=== PATIENT | female | born 1995 | race Caucasian/White ===

== ENCOUNTER → 2018-09-13 20:30 | Observation (INO) ==
[2018-09-13 19:13] LABS: Bacteria,Urine None Seen per hpf (None-Few); Bilirubin,Urine Negative (Negative); Blood,Urine Negative (Negative); Clarity,Urine Clear (Clear); Color,Urine Yellow (Yellow); Glucose,Urine (UA) 100 mg/dL (Normal); Hyaline Casts,Urine None Seen per lpf (None-Few); Ketones,Urine Trace mg/dL (Negative); Leukocyte Esterase,Urine Negative (Negative); Nitrite,Urine Negative (Negative); PH,Urine 6.5 pH Units (5.0-8.0); Protein,Urine 30 mg/dL (Neg-Trace); RBC,Urine 0-3 per hpf (0-3); Specific Gravity,Urine 1.025 (1.010-1.025); Squamous Epithelial Cell,Urine Many per lpf (None-Few); Urobilinogen,Urine Normal (Normal); WBC,Urine 0-3 per hpf (0-3)
[2018-09-13 19:25] LABS: Mucus,Urine Few (Few)
[2018-09-13 19:27] LABS: Amphetamine Screen,Urine Negative ng/mL (Cutoff=1000); Barbiturate Screen,Urine Negative ng/mL (Cutoff=200); Benzodiazepines Screen,Urine Negative ng/mL (Cutoff=200); Cannabinoid Screen,Urine Negative ng/mL (Cutoff = 50); Cocaine Screen,Urine Negative ng/mL (Cutoff= 300); Opiate Screen,Urine Negative ng/mL (Cutoff=300); Phencyclidine Screen,Urine Negative ng/mL (Cutoff=25)
--- NOTE | 2018-09-13 20:01 | Discharge Summary ---
Date of Encounter: 09/13/18 Time of Encounter: 19:57 - Discharge Diagnosis (1) 30 weeks gestation of Priority: Primary Status: Acute Comments: Follow up with Dr. Cortés as scheduled on Thursday labor precautions discussed Discharge home (2) Dixon Donaldson' contraction Priority: Secondary Status: Acute Comments: We discussed that these are not laborous contractions Verbalizes understanding - Discharge Medications Home Medications: Citalopram Hydrobromide [Citalopram HBr] 10 mg PO DAILY 04/26/18 [History] Vit #108/Iron/FA [ One Tablet] 1 tab PO DAILY 04/26/18 [History] Doxylamine/Pyridoxine HCl [Diclegis Dr 10-10 mg Tablet] 2 tab PO HS #60 tablet.d r 04/27/18 [Rx] Promethazine [Phenergan] 12.5 mg PO BID #60 tablet 04/27/18 [Rx] Allergies/Adverse Reactions: Allergy/AdvReac Type Severity Reaction Status Date / Time No Known Allergies Allergy Verified 04/26/18 09:23 Data Procedures and tests throughout hospitalization: Laboratory Tests 09/13/18 09/13/18 19:00 19:00 Urine Color Yellow Urine Clarity Clear Urine pH 6.5 Ur Specific [place]ber 1.025 Urine Protein 30 H Urine Glucose (UA) 100 H Urine Ketones Trace H Urine Blood Negative Urine Nitrite Negative Urine Bilirubin Negative Urine Urobilinogen Normal Ur Leukocyte Esterase Negative Urine Microscopic RBC 0-3 Urine Microscopic WBC 0-3 Ur Squamous Epith Cells Many H Urine Bacteria None Seen Hyaline Casts None Seen Urine Mucus Few Urine Yeast Test Not Performed Ur Culture Indicated? NO Urine Opiates Screen Negative Ur Barbiturates Screen Negative Ur Phencyclidine Scrn Negative Ur Amphetamines Screen Negative U Benzodiazepines Scrn Negative Urine Cocaine Screen Negative U Marijuana (THC) Screen Negative Ur Drug Screen Interp See Below Labs on day of discharge: Labs from last 24 hours 09/13/18 09/13/18 19:00 19:00 Urine Color Yellow Urine Clarity Clear Urine pH 6.5 Ur Specific [place] 1.025 Urine Protein 30 H Urine Glucose (UA) 100 H Urine Ketones Trace H Urine Blood Negative Urine Nitrite Negative Urine Bilirubin Negative Urine Urobilinogen Normal Ur Leukocyte Esterase Negative Urine Microscopic RBC 0-3 Urine Microscopic WBC 0-3 Ur Squamous Epith Cells Many H Urine Bacteria None Seen Hyaline Casts None Seen Urine Mucus Few Urine Yeast Test Not Performed Ur Culture Indicated? NO Urine Opiates Screen Negative Ur Barbiturates Screen Negative Ur Phencyclidine Scrn Negative Ur Amphetamines Screen Negative U Benzodiazepines Scrn Negative Urine Cocaine Screen Negative U Marijuana (THC) Screen Negative Ur Drug Screen Interp See Below Date of admission: 09/13/18 18:24 Discharging clinician: Jeniffer Vazquez Anticipated date of discharge: 09/13/18 - Patient Status Disposition: Home, Self-Care Condition: Good Functional capacity at discharge: independent ambulation Overall status at discharge: patient is progressing back to baseline - Discharge Instructions Follow Up With: Shakir Cortés MD [Partnered Physician] - - Diet and Activity Activity: increase activity as tolerated Diet: regular diet Hospital Course [employer] Reason for admission: other Discharge diagnosis: other Hospital course: Patient presents for c/o contractions since having intercourse on Thursday. She reports they are irregular and sometimes painful. She was monitored for 2 hours in L&D with no cervical change. She endorses good fm and denies lof, vb. Discharge home with follow up on Thursday Time Attestation: Total time spent providing and/or coordinating discharge services: Time Spent: Less than 30 minutes Exam - Constitutional General appearance IM: A&O X 3 - Respiratory Respiratory exam: Present: CTAB - Cardiovascular Cardiovascular exam IM: Present: RRR, +S1, +S2 - GI/Abdominal GI/Abdominal exam IM: normal bowel sounds, no peritoneal signs - Rectal Rectal exam: deferred - Uterine Tone: Firm - Extremities Exam Extremities exam IM: Present: normal capillary refill, normal inspection, radial pulses palpable and symmetrical - Neurological Exam Neurological exam: alert, CN II-XII intact, normal gait, oriented X3, reflexes normal, no focal deficits, strengths equal and symetr throughout - VTE Reasons for not Prescribing Prophylaxis: Treatment not Indicated - Low risk for VTE
[~2018-09-13 20:30] MED LIST: Ringers Solution, Lactated 1,000 ML IVC ONE
== END | disposition home or self-care (01) ==
LOC: 1NENULAB
PROVIDERS: ADMIT Advanced Practice Midwife; ATTEND Advanced Practice Midwife

== ENCOUNTER 2018-11-04 12:20 | Inpatient (IN) ==
[2018-11-04 14:13] LABS: Amphetamine Screen,Urine Negative ng/mL (Cutoff=1000); Barbiturate Screen,Urine Negative ng/mL (Cutoff=200); Benzodiazepines Screen,Urine Negative ng/mL (Cutoff=200); Cannabinoid Screen,Urine Negative ng/mL (Cutoff = 50); Cocaine Screen,Urine Negative ng/mL (Cutoff= 300); Opiate Screen,Urine Negative ng/mL (Cutoff=300); Phencyclidine Screen,Urine Negative ng/mL (Cutoff=25)
[2018-11-04] MEDS ORDERED: *HR* Nalbuphine 10 MG/ML AMPUL IVP PRN (14:28)
[2018-11-04] MEDS ORDERED: Ondansetron 4 MG/2 ML VIAL IVP PRN (14:28)
[2018-11-04] MEDS ORDERED: Naloxone 0.4 MG/ML INJ IVP PRN (14:28)
[2018-11-04] MEDS ORDERED: Lidocaine 1% 20 ML MDV INFILT PRN (14:28)
[2018-11-04] MEDS ORDERED: Famotidine 20 MG/2 ML VIAL IVP PRN (14:28)
[2018-11-04] MEDS ORDERED: Metoclopramide 10 MG/2 ML VIAL IVP PRN (14:28)
[2018-11-04] MEDS ORDERED: Ringers Solution, Lactated 1,000 ML IVC SCH (14:30)
[2018-11-04] MEDS ORDERED: Oxytocin 20 units/ LR 1000 mL 20 UNIT/1,000 ML BAG IVC SCH (14:30)
--- NOTE | 2018-11-04 14:38 | OB/GYN History & Physical ---
Date of Encounter: 11/04/18 Time of Encounter: 14:34 Assessment and Plan (1) Intrauterine Current visit: Yes Status: Acute Induction of labor Labs- CBC, Hold to collect CF Pain management plan of Epidural Expected (2) 38 weeks gestation of Current visit: Yes Status: Acute (3) Gestational diabetes Current visit: No Status: Acute Glucose monitoring Qualifiers: Gestational diabetes mellitus control: oral hypoglycemic-controlled Trimester: third trimester Qualified Code(s): O24.415 - Gestational diabetes mellitus in , controlled by oral hypoglycemic drugs History of Present Illness Chief complaint: Induction of labor, Gestational Diabetes HPI: Ms. Jordan is a 22 year old female at 38 weeks 6 days with history of gestat ional diabetes, arrives to the L&D suite for induction of labor. Patient on 500 mg Metformin BID and is poorly compliant with medications. Intermittent sensation of crampy abdominal pain, consistent with previous contractions. Patient denies martinez of fluids or vaginal bleeding. Denies any other complaints at this time. NPO. GBS negative. Past Med Surg Social Fam HX - Past Medical History Attestation: Yes The following information was validated with the patient. Source: patient, old records reviewed Medical history: no medical history Psychiatric history: depression - Past Surgical History Surgical History: no surgical history Additional surgical history: TONISILS - Social History Smoking Status: Never smoker Smokeless Tobacco Status: No Alcohol use: none Drug use: none - Family History Father Adopted: No Family Member Ethnicity: Non- Living Status: Still Living Hx Family Cardiac Disorders: No Hx Family Respiratory Disorders: No Hx Family Cancer: No Hx Family GI Disorders: No Hx Family Endocrine Disorder: Yes (diabetic type II) Hx Family Neuromuscular Disorders: No Hx Family Neurologic Disorders: No Hx Family HEENT Disorders: No Hx Family Autoimmune Disorders: No Mother Adopted: [place]: Sintia Bates Family Member Ethnicity: Non- Living Status: Still Living Hx Family Cardiac Disorders: Yes (hypertension) Hx Family Respiratory Disorders: No Hx Family Cancer: No Hx Family GI Disorders: No Hx Family Genitourinary Disorders: No Hx Family Endocrine Disorder: No Hx Family Musculoskeletal Disorders: No Hx Family Neuromuscular Disorders: No Hx Family Neurologic Disorders: No Hx Family HEENT Disorders: No Hx Family Autoimmune Disorders: No Hx Family Reproductive Disorders: No Hx Family Psychosocial Disorders: No Hx Family Medical Disorders: No Obstetrical History - Pregnancies : 2 Para: 1 Term: 1 : 0 Ab's: 0 Livin - History/Complications History/Complications: Gestational Diabetes Medications and Allergies Citalopram Hydrobromide [Citalopram HBr] 10 mg PO DAILY 04/26/18 [History] Vit #108/Iron/FA [ One Tablet] 1 tab PO DAILY 04/26/18 [His tory] metFORMIN 1 tab PO Q12HR 11/01/18 [History] Allergy/AdvReac Type Severity Reaction Status Date / Time No Known Allergies Allergy Verified 04/26/18 09:23 Review of System OB All systems PM: reviewed and no additional remarkable complaints except as stated - Constitutional Constitutional ROS IM: no fever(s), no headache(s) - Cardiovascular Cardiovascular: no chest pain, no pedal edema - Respiratory Respiratory: no dyspnea - Neurological Nerological: no headache(s), no other visual disturbances Exam - Constitutional Constitutional: well developed, well nourished, no acute distress, average body habitus - HEENT HEENT: Mucus Membranes Moist - Neck Neck exam: full ROM - Lungs Respiratory exam: CTAB - Cardiovascular Cardiovascular exam: RRR - Abdomen Abdomen: Present: gravid, non tender. Absent: diffuse tenderness - Extremities Extremities exam: full ROM, normal capillary refill, normal inspection, radial pulses palpable and symmetrical - Uterus Uterus exam: Present: enlarged (appropriate for gestaional age) Results Result Diagrams: 11/04/18 16:41 All other labs normal. - VTE Reasons for not Prescribing Prophylaxis: Treatment not Indicated - Low risk for VTE Attestation: My signature below is to certify that this patient is under my care and that I, or nurse practitioner, or a physician's circulation assistant working with me, has a [id number] encounter with this patient. smith penaloza md facog
[2018-11-04 17:04] LABS: Basophils # 0.1 K/mcL (0.0-0.2); Basophils % 0.5 %; Eosinophils # 0.1 K/mcL (0.0-0.6); Eosinophils % 1.2 %; Hematocrit 32.6 % (35.3-44.9); Hemoglobin 10.6 g/dL (11.5-15.4); Immature Granulocytes % 0.7 % (0-4); Lymphocytes # 2.4 K/mcL (0.6-4.6); Lymphocytes % 23.2 %; Mean Corpuscular HGB Conc 32.5 g/dL (31.6-35.5); Mean Corpuscular Hemoglobin 28.6 pg (28.0-33.3); Mean Corpuscular Volume 87.9 fL (83.0-100.0); Mean Platelet Volume 11.7 fL (9.4-12.4); Monocytes # 0.9 K/mcL (0.0-1.3); Monocytes % 8.6 %; Neutrophils # 6.8 K/mcL (1.6-8.9); Platelet Count 225 K/mcL (140-400); Red Blood Count 3.71 M/mcL (3.82-4.97); Segmented Neutrophils % 65.8 %
[2018-11-04] MEDS ORDERED: *HR* FentaNYL (PF) 100 MCG/2 ML VIAL ONE (22:18)
[2018-11-04] MEDS ORDERED: Lidocaine -MPF 1% 5 ML AMPUL ONE (22:18)
[2018-11-04] MEDS ORDERED: *HR* Ropivacaine/PF 0.2% 20 ML VIAL ONE (22:18)
[2018-11-04] MEDS ORDERED: Epidural Premix (fent/bupiv) 110 ML EP ONE (22:20)
--- NOTE | 2018-11-04 22:43 | Anesthesia Evaluation PreOp ---
Date of Encounter: 11/04/18 Time of Encounter: 22:41 - Past History Planned Operation: leigh Cardiac History: Denies any Significant Hx Pulmonary History: Denies Any Significant HX PLATING OPERATOR History: Denies Any Significant HX Other Medical History: Diabetes Type II (gestational) Anesthesia History: No Prior Anesthetic Complications, Past Anesthesia (tonsils) : Yes () Alcohol Use: none Drug use: none Medications and Allergies Citalopram Hydrobromide [Citalopram HBr] 10 mg PO DAILY 04/26/18 [History] Vit #108/Iron/FA [ One Tablet] 1 tab PO DAILY 04/26/18 [History] metFORMIN 1 tab PO Q12HR 11/01/18 [History] Allergy/AdvReac Type Severity Reaction Status Date / Time No Known Allergies Allergy Verified 04/26/18 09:23 - Meds/Allergy Pre-op Review Medications Reviewed: Yes Allergies Reviewed: Yes Beta Blockers on Current Med List: No Anesthesia Results - Labs 11/04/18 16:41 Anesthesia Exam O2 Sat Height 1.63 m Weight 92.193 kg Vital Signs Temp Pulse Resp BP 97.9 F 86 18 124/61 11/04/18 18:10 11/04/18 18:10 11/04/18 18:10 11/04/18 18:10 Height: 64 Weight: 92 - HEENT Pupil (Motor): Pupils equal Mallampati: II Teeth: Normal Oral Opening: Greater than 3 - PLATING OPERATOR LOC: Oriented PLATING OPERATOR Motor: Normal RUE, Normal LUE, Normal RLE, Normal LLE, Normal Face PLATING OPERATOR Sensory: Normal: RUE, LUE, RLE, LLE, Face - Cardiac Rhythm: Regular Murmur: None JVD: No Carotid Bruit: No - Pulmonary Breath Sounds: bilateral Clear Respiratory Effort: Symmetrical Anesthesia Assess/Plan ASA Score: 2 Level of consciousness: Cooperative Anesthetic Plan: Epidural Monitoring Plan: Standard Monitors
--- NOTE | 2018-11-04 22:47 | Anesthesia Procedures ---
Addendum entered and electronically signed by Renzo Valencia CRNA 11/05/18 07:11: Delivery Date: 11/05/18 Infant Delivery Time: 04:34 Addendum entered and electronically signed by Renzo Valencia CRNA 11/04/18 22:50: procedure end time 2250 Original Note: Date of Encounter: 11/04/18 Time of Encounter: 22:45 Procedures: Anesthesia - Epidural/Spinal Patient ID/Chart reviewed: Yes Patient examined: Yes OB Eval: : 2 OB Eval: Hx Para: 1 OB Eval: Contractions: Non-stressed pattern Consent Obtained: Yes Supplemental Oxygen: None/Room Air Site Prep: Aseptic Technique Patient position: upright Local Anesthetic: Lidocaine 1% Amount of Local Anesthetic used: 3 Touhy Needle Gauge: 18 Touhy Needle Depth (cm): 6 Catheter Depth at Skin (cm): 12 Test Dose (1.5% Lido + Epi): Volume given (mls): 3 Test Dose Result: Negative Loading Dose: Fentanyl (mcg): 100 Loading Dose: Other: 3ml nss, 3ml 0.2% ropivicaine Loading Dose Administered: Thru Touhy Needle Infusion Med: 0.125% Bupivacaine w/ 2 mcg/ml Fentanyl Infusion Rate (mls/hr): [address]: Tegaderm Interspace Used: L3-L4 Loss of Resistance (LOPEZ): Yes Blood: No CSF: No Paresthesia: No
[2018-11-04] MEDS ORDERED: Epidural Premix (fent/bupiv) 110 ML EP SCH (23:00)
--- NOTE | 2018-11-05 02:42 | OB Labor Progress Note ---
Date of Encounter: 11/05/18 Time of Encounter: 02:40 Labor Progress Note - Subjective Subjective: Patient comfortable with epidural - Cervix Cervix: 6-7/70/-2 - Heart Tones Heart Tones: Baseline 140 Moderate variability Accelerations present 15x15 No decelerations FHR Category II - [place]: Contractions every 2-3 minutes - Interventions Interventions: SVE AROM - moderate amount of clear fluid IUPC placed - Plan Physician notified: No Plan: Continue IOL management Frequent position changes Anticipate
[2018-11-05] MEDS ORDERED: Measles/Mumps/Rubella Vacc 0.5 ML VIAL SQ PRN (04:52)
[2018-11-05] MEDS ORDERED: Acetaminophen 325 MG TABLET PO PRN (04:52)
--- NOTE | 2018-11-05 04:58 | OB/GYN Procedure Note ---
Delivery - Delivery Date: 11/05/18 Provider: Shakir Cortés Intrapartum events: none Delivery induction: oxytocin Delivery augmentation: rupture of membranes Delivery monitor: external FHT, external uterine Anesthesia: epidural Quantitated Blood Loss: 500 - (s) Infant A Delivery Date: 11/05/18 Infant Delivery Time: 04:34 Presentation: vertex Position: OA Route of delivery: Gender: Female Viability: Viable Pounds: 8 Ounces: 13 at 1 minute: 8 at 5 mins: 9 Shoulder Dystocia: not encountered Placenta: spontaneous - Repair Episiotomy: none Laceration Description: None - Complications Delivery complications: none - Disposition Mom disposition: stable in LDR - Comments Comments: Patient progressed to complete and on the perineum. She delivered a live female weighing 8 lbs. 13 oz. from occiput anterior position. Apgars were 8 and 9. Placenta delivered spontaneously intact. No episiotomy or tears were encountered.
[2018-11-05] MEDS ORDERED: Oxytocin 20 units/ LR 1000 mL 20 UNIT/1,000 ML BAG IVC SCH (05:00)
[2018-11-05] MEDS: Prenatal Vit/FA 1 EACH TABLET PO SCH (08:27)
[2018-11-05] MEDS ORDERED: Etonogestrel 68 MG IMPLANT IL ONE (09:06)
[2018-11-05] MEDS: Ibuprofen 600 MG TABLET PO PRN ×2 (10:18→19:49)
[2018-11-06 07:10] LABS: Basophils % 0.4 %; Eosinophils # 0.1 K/mcL (0.0-0.6); Eosinophils % 1.1 %; Hematocrit 26.2 % (35.3-44.9); Immature Granulocytes % 0.5 % (0-4); Lymphocytes # 2.4 K/mcL (0.6-4.6); Lymphocytes % 24.7 %; Mean Corpuscular HGB Conc 32.1 g/dL (31.6-35.5); Mean Corpuscular Hemoglobin 28.5 pg (28.0-33.3); Mean Corpuscular Volume 88.8 fL (83.0-100.0); Mean Platelet Volume 11.4 fL (9.4-12.4); Monocytes % 9.8 %; Neutrophils # 6.1 K/mcL (1.6-8.9); Platelet Count 178 K/mcL (140-400); Red Blood Count 2.95 M/mcL (3.82-4.97); Segmented Neutrophils % 63.5 %
[2018-11-06 07:15] LABS: Hemoglobin 8.4 g/dL (11.5-15.4)
[2018-11-06] MEDS: Ibuprofen 600 MG TABLET PO PRN (08:09)
[2018-11-06] MEDS: Prenatal Vit/FA 1 EACH TABLET PO SCH (08:09)
[2018-11-06 08:14] VITALS: BP 102/55
--- NOTE | 2018-11-06 10:53 | Discharge Summary ---
Date of Encounter: 11/06/18 Time of Encounter: 10:51 - Discharge Diagnosis (1) Status post vaginal delivery Priority: Primary Status: Acute Comments: Pt meeting PPD1 milestones. Reports pain managed by Ibuprofen. Reports breas tfeeding is going well. Discussed control options & safe spacing. Desires Nexplanon prior to discharge. Anticipate discharge home today. (2) Breast feeding status of mother Priority: Secondary Status: Acute (3) Depression Priority: Secondary Status: Acute Comments: Pt with h/o Depression, currently on Celexa. Pt reports good mood. Discussed s/sx of depression & resources. Qualifiers: Depression Type: other depression Qualified Code(s): F32.89 - Other specified depressive episodes (4) Nexplanon insertion Priority: Secondary Status: Acute (5) Gestational diabetes Priority: Secondary Status: Acute Comments: 2hr GTT in 6 weeks. Qualifiers: Gestational diabetes mellitus control: oral hypoglycemic-controlled Trimester: third trimester Qualified Code(s): O24.415 - Gestational diabetes mellitus in , controlled by oral hypoglycemic drugs - Discharge Medications Prescriptions: Ibuprofen [Motrin] 600 mg PO Q6HR PRN #30 tablet PRN Reason: Moderate Pain Docusate [Colace] 100 mg PO BID #60 capsule Ferrous Sulfate 325 mg PO DAILY #30 tablet Home Medications: Citalopram Hydrobromide [Citalopram HBr] 10 mg PO DAILY 04/26/18 [History] Vit #108/Iron/FA [ One Tablet] 1 tab PO DAILY 04/26/18 [History] Docusate [Colace] 100 mg PO BID #60 capsule 11/06/18 [Rx] Ferrous Sulfate 325 mg PO DAILY #30 tablet 11/06/18 [Rx] Ibuprofen [Motrin] 600 mg PO Q6HR PRN #30 tablet 11/06/18 [Rx] Allergies/Adverse Reactions: Allergy/AdvReac Type Severity Reaction Status Date / Time No Known Allergies Allergy Verified 04/26/18 09:23 Data Procedures and tests throughout hospitalization: Laboratory Tests 11/04/18 11/04/18 11/04/18 12:40 13:24 16:40 WBC RBC Hgb Hct MCV MCH MCHC RDW Plt Count MPV Immature Gran % Seg Neutrophils % Lymphocytes % Monocytes % Eosinophils % Basophils % Neutrophils # Lymphocytes # Monocytes # Eosinophils # Basophils # Glucose POC Glucose 83 Urine Opiates Screen Negative Ur Barbiturates Screen Negative Ur Phencyclidine Scrn Negative Ur Amphetamines Screen Negative U Benzodiazepines Scrn Negative Urine Cocaine Screen Negative U Marijuana (THC) Screen Negative Ur Drug Screen Interp See Below Hep Bs Antigen Nonreactive 11/04/18 11/05/18 11/06/18 16:41 05:38 06:56 WBC 10.3 9.7 RBC 3.71 L 2.95 L Hgb 10.6 L 8.4 L D Hct 32.6 L 26.2 L MCV 87.9 88.8 MCH 28.6 28.5 MCHC 32.5 32.1 RDW 13.0 13.0 Plt Count 225 178 MPV 11.7 11.4 Immature Gran % 0.7 0.5 Seg Neutrophils % 65.8 63.5 Lymphocytes % 23.2 24.7 Monocytes % 8.6 9.8 Eosinophils % 1.2 1.1 Basophils % 0.5 0.4 Neutrophils # 6.8 6.1 Lymphocytes # 2.4 2.4 Monocytes # 0.9 1.0 Eosinophils # 0.1 0.1 Basophils # 0.1 0.0 Glucose 88 POC Glucose Urine Opiates Screen Ur Barbiturates Screen Ur Phencyclidine Scrn Ur Amphetamines Screen U Benzodiazepines Scrn Urine Cocaine Screen U Marijuana (THC) Screen Ur Drug Screen Interp Hep Bs Antigen Labs on day of discharge: Labs from last 24 hours 11/06/18 06:56 WBC 9.7 RBC 2.95 L Hgb 8.4 L D Hct 26.2 L MCV 88.8 MCH 28.5 MCHC 32.1 RDW 13.0 Plt Count 178 MPV 11.4 Immature Gran % 0.5 Seg Neutrophils % 63.5 Lymphocytes % 24.7 Monocytes % 9.8 Eosinophils % 1.1 Basophils % 0.4 Neutrophils # 6.1 Lymphocytes # 2.4 Monocytes # 1.0 Eosinophils # 0.1 Basophils # 0.0 Date of admission: 11/04/18 12:20 Primary care physician: Lobo Campbell CNP Consults: 11/05/18 04:52 Consult to Multi Care Technician [CONS] Routine Comment: Vaginal delivery, consult needed Discharging clinician: Lulú Nick Anticipated date of discharge: 11/06/18 - Patient Status Disposition: Home, Self-Care Condition: Good Functional capacity at discharge: independent ambulation Overall status at discharge: patient is progressing back to baseline - Discharge Instructions Follow Up With: Lobo Campbell CNP [Primary Care Provider] - Shakir Cortés MD [Partnered Physician] - - Diet and Activity Activity: increase activity as tolerated Diet: advance to your usual diet Hospital Course Reason for admission: induction of labor, IUP at term Delivery: Episiotomy: none Laceration: none Other procedures: none complications: none Discharge diagnosis: IUP at term delivered baby: female Hospital course: - Delivery Date: 11/05/18 Provider: Shakir Cortés Intrapartum events: none Delivery induction: oxytocin Delivery augmentation: rupture of membranes Delivery monitor: external FHT, external uterine Anesthesia: epidural Quantitated Blood Loss: 500 - Infant (s) Infant A Delivery Date: 11/05/18 Infant Delivery Time: 04:34 Presentation: vertex Position: OA Route of delivery: Gender: Female Viability: Viable Pounds: 8 Ounces: 13 at 1 minute: 8 at 5 mins: 9 Shoulder Dystocia: not encountered Placenta: spontaneous - Repair Episiotomy: none Laceration Description: None - Complications Delivery complications: none - Disposition Mom disposition: home PPD1, breast feeding Time Attestation: Total time spent providing and/or coordinating discharge services: Exam - Constitutional Vitals: Temp Pulse Resp BP Pulse Ox 98.1 F 79 16 102/55 98 11/06/18 07:30 11/06/18 07:30 11/06/18 07:30 11/06/18 07:30 11/06/18 04:35 General appearance IM: A&O X 3, pleasant, no acute distress - Respiratory Respiratory exam: Present: CTAB - Cardiovascular Cardiovascular exam IM: Present: RRR - GI/Abdominal GI/Abdominal exam IM: normal bowel sounds - Uterine Tone: Firm Uterus Position: 1 Finger Below Umbilicus, Midline - Extremities Exam Extremities exam IM: Present: normal capillary refill, normal inspection. Absent: calf tenderness - Neurological Exam Neurological exam: alert, oriented X3, reflexes normal
[2018-11-06] MEDS ORDERED: Etonogestrel 68 MG IMPLANT IL ONE (11:09)
--- NOTE | 2018-11-06 13:02 | OB/GYN Procedure Note ---
OB-[employer]: Procedure - Diagnosis Date of procedure: 11/06/18 Pre-op diagnosis: undesired fertility, contraceptive education Post-op diagnosis: same - Procedure Procedure: Nexplanon Insertion Surgeon: uLlú Nick Was there an medical assistant cardiology present: No Anesthesia Type: Local Estimated blood loss (cc): 0 Procedure Complications: None Disposition: no change Narrative: Informed consent obtained after discussion of risks and benefits of Nexplanon. Patient placed in supine position with left arm abducted. Inner aspect of left upper arm cleansed with betadine solution. 5ml of 1% Lidocaine injected. Nexplanon placed to full length before device deployed. Patient and provider able to palpate device subdermally after insertion. Pressure dressing applied. Patient tolerated well. Patient educated on warning signs to report and care of site.
== END 2018-11-06 13:38 | disposition home or self-care (01) | DRG 560 ==
LOC: 1NENULAB → OBSVTOIN 12:20 → 1NENUOBS 11-05 08:06
PROVIDERS: ADMIT Advanced Practice Midwife; ATTEND Advanced Practice Midwife